=== PATIENT | male | born 2005 | race Asian ===

== ENCOUNTER 2023-10-27 22:33 | Emergency (ER) | payer BC ==
[~2023-10-27] VITALS: Ht 182.9 cm; Wt 77.0 kg
[2023-10-27 23:08] VITALS: BP 127/48; PULSE 62; RESP 18; TEMP 97.8; O2SAT 100
== END 2023-10-28 05:28 | disposition home or self-care (01) ==
LOC: ER 22:33
DX: S00.81XD Abrasion of other part of head, subsequent encounter (principal); X58.XXXD Exposure to other specified factors, subsequent encounter
CPT/HCPCS: 99281